=== PATIENT | female | born 2000 | race Caucasian/White ===

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

== ENCOUNTER → 2023-03-04 | Outpatient (CLI) | payer BC ==
[~2023-03-04] MED LIST changes: -DEXAMETHASONE SOD PHOSPHATE 4 MG/ML 1 ML VIAL IV ONE; +FUROSEMIDE 10 MG/ML 2 ML VIAL IV ONE; -HYDROmorphone 0.5 MG/0.5 ML SYRINGE IVP PRN; -LACTATED RINGERS 1,000 ML IV SCH; -ONDANSETRON 4 MG/2 ML VIAL IVP ONE
--- NOTE | 2023-03-04 19:51 | NM ---
EXAMINATION TYPE: NM lasix renogram DATE OF EXAM: 03/04/2023 COMPARISON: 06/04/2021 CLINICAL INDICATION: Female, 22 years old with history of N13.30 UNSPECIFIED HYDRONEPHROSIS; Following administration of 10.1 mCi Tc 99m MAG3 with 20mg Lasix. Immediate images post injection FINDINGS: Left: 49.7 %. Right: 50.3 %. Max renal flow left: 3 minutes. Max renal flow right: 4.5 minutes. Satisfactory accumulation of radiotracer within both renal collecting systems. After the administrati on of Lasix, there is prompt excretion from both collecting systems. T 1/2 left: 13.7 minutes. T 1/2 right: 14.8 minutes. IMPRESSION: Findings compatible with dilated right collecting system without obstruction.
== END | disposition home or self-care (01) ==
LOC: RADNMMAIN 12:43
PROVIDERS: ATTEND Urology
DX: N13.30 Unspecified hydronephrosis (principal)
CPT/HCPCS: 78708; A9562

== ENCOUNTER → 2023-10-01 | Outpatient (CLI) | payer BC ==
--- NOTE | 2023-10-01 17:00 | NM ---
EXAMINATION TYPE: NM lasix renogram DATE OF EXAM: 10/01/2023 COMPARISON: NONE CLINICAL INDICATION: Female, 23 years old with history of N13.30 HYDRONEPHROSIS RIGHT SIDE; Following administration of 9.5 mCi Tc 99m MAG3 with 20mg Lasix. Immediate images post injection FINDINGS: Left: 52 %. Right: 48 %. Max renal flow left: 3.5 minutes. Max renal flow right: 4.0 minutes. Satisfactory accumulation of radiotracer within both renal collecting systems. After the administrati on of Lasix, there is prompt excretion from both collecting systems. T 1/2 left: 12.8 minutes. T 1/2 right: 12.2 minutes. IMPRESSION: No obstruction. Excretion is approximately equal.
== END | disposition home or self-care (01) ==
LOC: RADNMMAIN 12:54
PROVIDERS: ATTEND Urology
DX: N13.30 Unspecified hydronephrosis (principal)
CPT/HCPCS: 78708; A9562